=== PATIENT | male | born 1955 | race Caucasian/White ===

== ENCOUNTER 2018-05-04 15:16 | Emergency (ER) | payer OTHER ==
[~2018-05-04] VITALS: Ht 190.5 cm; Wt 160.1 kg
[~2018-05-04 15:16] MED LIST: AMOXICILLIN 50500 M1 PO; APEDRA; DEXILANT60 MG PO; GLUCOPHAGE1000 MG; HUMALOG100 UNIT/1 SUBQ; HYDROCODON-ACE1 EAC5 PO; IBUPROFEN 800800 M1 PO; LANTUS; LOVASTAT40; MECLIZINE HCL25 M1 PO; NEURONTIN600 MG; PERCOCET 10-321 EACH PO; PRINZIDE 20-121 EACH PO; TAMSULOSIN HCL0.4 M1 PO; ULTRAM 50MG TAB50 MG PO
[2018-05-04] MEDS ORDERED: METOPROLOL SUCC50 MG PO (15:33)
[2018-05-04] MEDS ORDERED: FLOMAX0.4 MG PO (15:33)
[2018-05-04] MEDS ORDERED: NEURONTIN600 MG PO (15:33)
[2018-05-04] MEDS ORDERED: ATORVASTATIN CA40 MG PO (15:34)
[2018-05-04] MEDS ORDERED: ZOLOFT25 MG PO (15:34)
[2018-05-04] MEDS ORDERED: NORVASC2.5 MG PO (15:34)
[2018-05-04] MEDS ORDERED: MOBIC15 MG PO (15:36)
[2018-05-04 16:21] LABS: ABSOLUTE BASOPHILS 0.1 thou/uL (0.0-0.2); ABSOLUTE EOSINOPHILS 0.2 thou/uL (0.0-0.7); ABSOLUTE LYMPHOCYTES 2.2 thou/uL (0.8-5.3); ABSOLUTE MONOCYTES 0.6 thou/uL (0.0-1.2); ABSOLUTE NEUTROPHILS 3.8 thou/uL (1.6-8.1); BASOPHILS 0.8 %; EOSINOPHILS 3.2 %; HEMATOCRIT 38.2 % (42.0-52.0); HEMOGLOBIN 12.5 gm/dL (14.0-18.0); LYMPHOCYTES 32.3 %; MCH 28.5 pg (26.0-34.0); MCHC 32.7 g/dL (28.0-37.0); MCV 87.1 fL (80.0-100.0); MONOCYTES 8.2 %; MPV 8.5 fl. (7.2-11.1); NUCLEATED RBCS 0 /100WBC; PLATELET COUNT* 227 thou/uL (150-400); POLYS 55.5 %; RBC 4.39 mil/uL (4.50-6.00); RDW-CV 14.2 % (10.5-14.5); WBC 6.9 thou/uL (4.0-11.0)
[2018-05-04 16:43] LABS: ANION GAP 5 mmol/L (7-16); BUN 25 mg/dL (7-18); CALCIUM 8.9 mg/dL (8.5-10.1); CHLORIDE 101 mmol/L (98-107); CO2 31 mmol/L (21-32); CREATININE 1.4 mg/dL (0.6-1.3); GLUCOSE 201 mg/dL (70-99); POTASSIUM 4.9 mmol/L (3.5-5.1); SODIUM 137 mmol/L (136-145); TROPONIN-I LEVEL <0.06 ng/mL (<0.06)
[2018-05-04 16:47] LABS: ALBUMIN 3.8 g/dL (3.4-5.0); ALKALINE PHOSPHATASE 75 U/L (46-116); SGOT 17 U/L (15-37); SGPT 28 U/L (30-65); TOTAL BILIRUBIN 0.8 mg/dL (<0.1-1.0); TOTAL PROTEIN 7.5 g/dL (6.4-8.2)
[2018-05-04 18:30] VITALS: BP 131/66
--- NOTE | 2018-05-05 11:50 | EKG ---
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1955 Requested By: Lorraine Pardo Order Number: [id number] MD: Kp Bagley Measurements Intervals [place] Rate: 84 P: -45 NE: 250 QRS: -11 QRSD: 100 T: 27 QT: 382 QTc: 452 Interpretive Statements Pediatric ECG interpretation Sinus or ectopic atrial bradycardia Prolonged NE interval Low voltage, precordial leads Compared to ECG 12/03/2015 08:39:17 First degree AV block now present Low QRS voltage now present Electronically Signed On 05-05-2018 11:49:53 [employer] by Kp Bagley [email or web address] <ELECTRONICALLY SIGNED> By: Kp Bagley MD, [facility] 05/05/18 1149 42 1643 Kp Bagley MD, [facility] /EPI
== END 2018-05-04 18:30 | disposition home or self-care (01) ==
LOC: M.ERS 15:16
PROVIDERS: Physician Assistant
DX: I95.1 Orthostatic hypotension (principal); E86.0 Dehydration; I10 Essential (primary) hypertension; E11.42 Type 2 diabetes mellitus with diabetic polyneuropathy; Z88.1 Allergy status to other antibiotic agents

== ENCOUNTER 2018-06-02 07:06 | Emergency (ER) | payer OTHER ==
[~2018-06-02] VITALS: Ht 190.5 cm; Wt 163.3 kg
[~2018-06-02 07:06] MED LIST changes: +ATORVASTATIN CA40 MG PO; +FLOMAX0.4 MG PO; +METOPROLOL SUCC50 MG PO; +MOBIC15 MG PO; +NEURONTIN600 MG PO; +NORVASC2.5 MG PO; +ZOLOFT25 MG PO
[2018-06-02 07:12] VITALS: BP 156/82
[2018-06-02] MEDS ORDERED: LANTUS100 UNIT/M SUBQ (07:17)
[2018-06-02] MEDS ORDERED: NOVOLOG100 UNIT/1 SUBQ (07:18)
== END 2018-06-02 07:49 | disposition home or self-care (01) ==
LOC: M.ERS 07:06
DX: T40.2X1A Poisoning by other opioids, accidental (unintentional), initial encounter (principal); I10 Essential (primary) hypertension; E11.42 Type 2 diabetes mellitus with diabetic polyneuropathy; Z79.4 Long term (current) use of insulin; Z88.1 Allergy status to other antibiotic agents; Y92.89 Other specified places as the place of occurrence of the external cause

== ENCOUNTER 2020-01-13 14:40 | Inpatient (IN) | payer MEDICARE ==
[~2020-01-13] VITALS: Ht 193 cm; Wt 166.0 kg
--- NOTE | ~2020-01-13 | CON ---
[address] [address] CONSULTATION Name: GET MARSHALL Room: [address] IN [facility]#: [id number] Admission: 01/13/20 Attend Phys: Tristan Ellington Discharge: Date of : 51 Report #: [id number] THIS REPORT FOR: //name// cc: Kimberly Manley Sarah Anne FNP ~ DATE OF SERVICE: 01/14/2020 ADMISSION DIAGNOSIS: Diabetic foot ulcer to the right great toe with worsening cellulitis. CHIEF COMPLAINT AND HISTORY OF PRESENT ILLNESS: The patient is a 64-year-old male with type 2 diabetes mellitus, peripheral neuropathy, obesity, and hypertension. He presented to the Emergency Room yesterday for increasing inflammation and pain to the right great toe. Several days ago, he first noticed a wound to the plantar aspect of the right hallux, which became increasingly red, hot, and swollen. He spoke with his PCP and was advised to go to the Emergency Room. He denies fevers, chills, nausea, malaise, chest pain, or shortness of breath. PAST MEDICAL HISTORY: DM, hypertension, peripheral neuropathy, morbid obesity. ALLERGIES: DECLOMYCIN. SOCIAL HISTORY: Denies alcohol or tobacco use. X-ray, negative for osteomyelitis to right hallux. LABORATORY DATA: WBC 9.9, RBC 4.74, hemoglobin 13.4, hematocrit 41.2, platelets 254. BUN 25, creatinine 1.5, glucose 203, albumin 4.0. PHYSICAL EXAMINATION: Temperature 98.3, pulse 85, respirations 18, blood pressure 148/85. There is an ulceration of the right plantar hallux that measures roughly 3.0 x 1.5 cm and is full thickness with a granular wound bed. There is no exposed bone, tendon, or joint. There is erythema to the right hallux extending to the dorsal and plantar aspect of the distal foot. There is no fluctuance or crepitation. The foot is warm with palpable dorsalis pedis and posterior tibial pulses. There is no pallor or cyanosis. He has onychomycosis in the right hallux, nail is severely dystrophic without leonela paronychia. Both lower extremities have +3 nonpitting edema with mild hemosiderosis. No calf pain or popliteal adenopathy bilaterally. IMPRESSION: Diabetic foot ulceration to right hallux with cellulitis, no clinical or radiographic evidence of osteomyelitis. PLAN: I took an aerobic swab culture and debrided the wound with scissors and forceps to remove some subcutaneous tissue from [place] [address] CONSULTATION Name: AUBREEERROLGET Kwon Room: [address]#: [id number] Admission: 01/13/20 Attend Phys: Tristan Ellington Discharge: Date of : 51 Report #: [id number] was cleansed and dressed with Xeroform foam and rolled gauze. I do not anticipate the need for surgical debridement or amputation. I am not going to order an MRI as I do not favor an abscess or osteomyelitis. The patient encouraged to elevate foot and minimize ambulation to the heel for short distances and transfers during his hospital stay. I will have a surgical shoe delivered at bedside. By: 1144 [id number] Suarez DPM /aida
[~2020-01-13 14:40] MED LIST changes: -ATORVASTATIN CA40 MG PO; -GLUCOPHAGE1000 MG; +GLUCOPHAGE1000 MG PO; +LANTUS100 UNIT/M SUBQ; +LIPITOR40 MG PO; +NOVOLOG100 UNIT/1 SUBQ
[2020-01-13 14:46] VITALS: BP 162/90
[2020-01-13 15:35] LABS: ABSOLUTE BASOPHILS 0.1 thou/uL (0.0-0.2); ABSOLUTE EOSINOPHILS 0.3 thou/uL (0.0-0.7); ABSOLUTE MONOCYTES 0.9 thou/uL (0.0-1.2); ABSOLUTE NEUTROPHILS 5.8 thou/uL (1.6-8.1); BASOPHILS 0.7 %; EOSINOPHILS 2.9 %; HEMATOCRIT 41.2 % (42.0-52.0); HEMOGLOBIN 13.4 gm/dL (14.0-18.0); LYMPHOCYTES 29.8 %; MCH 28.2 pg (26.0-34.0); MCHC 32.4 g/dL (28.0-37.0); MONOCYTES 8.7 %; MPV 7.7 fl. (7.2-11.1); NUCLEATED RBCS 0 /100WBC; PLATELET COUNT* 254 thou/uL (150-400); POLYS 57.9 %; RBC 4.74 mil/uL (4.50-6.00); RDW-CV 15.2 % (10.5-14.5); WBC 9.9 thou/uL (4.0-11.0)
[2020-01-13 15:50] LABS: CALCIUM 9.9 mg/dL (8.5-10.1); CREATININE 1.6 mg/dL (0.6-1.3); POTASSIUM 4.8 mmol/L (3.5-5.1); TOTAL BILIRUBIN 0.6 mg/dL (<0.1-1.0); TOTAL PROTEIN 8.4 g/dL (6.4-8.2)
--- NOTE | 2020-01-13 17:26 | EKG ---
[place] [address] ELECTROCARDIOGRAM REPORT Name: AUBREEGET NORTON Room: [place] [address] ADM IN [facility]#: [id number] Admission: 01/13/20 Attend Phys: Merrill Bañuelos Discharge: Date of : 51 Date of Service: 01/13/20 1533 Report #: [id number] THIS REPORT FOR: //name// [facility] ED Test Date: 2020-01-13 Test Time: 15:33:57 Pat Name: GET MARSHALL Department: Room: [facility] Gender: M Barkeep: JONES : 1955 Requested By: Brant Samuel Order Number: [id number] MD: Kp Bagley Measurements Intervals [place] Rate: 79 P: 30 RI: 211 QRS: -29 QRSD: 160 T: 3 QT: 406 QTc: 466 Interpretive Statements Sinus rhythm Right bundle branch block Baseline wander in lead(s) II,aVR Compared to ECG 05/04/2018 16:43:21 Right bundle-branch block now present First degree AV block no longer present Electronically Signed On 01-13-2020 17:26:36 [employer] by Kp Bagley [email or web address] <ELECTRONICALLY SIGNED> By: Kp Bagley MD, FACC 01/13/20 1726 1533 1533 Kp Bagley MD, FACC /EPI
[2020-01-13 20:43] LABS: CREATININE 1.5 mg/dL (0.6-1.3); POTASSIUM 4.7 mmol/L (3.5-5.1)
[2020-01-13 20:46] LABS: MAGNESIUM 1.2 mg/dL (1.8-2.4); PHOSPHORUS* 3.9 mg/dL (2.5-4.9)
[2020-01-13 21:40] VITALS: BP 142/70
[2020-01-13 23:00] VITALS: BP 148/85
[2020-01-13] MEDS ORDERED: ZESTRIL40 MG PO (23:47)
[2020-01-13] MEDS ORDERED: TEMAZEPAM30 MG PO (23:51)
[2020-01-13] MEDS ORDERED: DESYREL150 MG (23:53)
--- NOTE | 2020-01-14 06:28 | NUR ---
RECEIVED REPORT FROM ED RN. PT TRANSFERRED TO 228. PT A&OX4. VSS. PHYSICAL ASSESSMENT COMPLETED AND CHARTED. PT ON RA/2LNC AT HS. PT TRACING SR/PVC ON TELE. PT SUPPOSED TO BE UPSTANDBY DUE TO RECENT FALL BUT REFUSED BED ALARM ON & TO BE ASSISTED TO RESTROOM. PT COMPLAINED OF BACK PAIN-MED GIVEN PER MAY. PT WITH RIGHT FOOT CELLULITIS & SORE ON RIGHT GREAT TOE-CLEANED, PAT DRY & PHOTO TAKEN-WOUND CARE CONSULT. CALL LIGHT WITHIN REACH.
[2020-01-14 07:30] VITALS: BP 110/69
[2020-01-14 13:10] VITALS: BP 117/68
[2020-01-14 16:29] VITALS: BP 138/79
[2020-01-14 20:00] VITALS: BP 123/53
[2020-01-15] VITALS: BP 129/76; BP 141/94
--- NOTE | 2020-01-15 05:29 | NUR ---
ASSUMED CARE OF PT AFTER REPORT AT 1930. PT A&IX4. VSS. PHYSICAL ASSESSMENT COMPLETED AND CHARTED. PT ON RA. PT REQUESTED FOR CPAP HE HAS SLEEP APNEA-DR KHALIL MADE AWARE WITH NEW ORDER. PT COMPLAINED OF BACK PAIN-MED GIVEN PER MAY. CALL LIGHT WITHIN REACH.
[2020-01-15 07:30] VITALS: BP 137/81
[2020-01-15 11:55] VITALS: BP 137/81
[2020-01-16] MEDS ORDERED: CEFDINIR300 MG PO (14:40)
== END 2020-01-15 15:00 | disposition home or self-care (01) | DRG 623 ==
LOC: M.ERS 14:40 → M.2W 15:53 → M.TBA-ER 15:53 → M.2W 22:09
PROVIDERS: Family Medicine; ADMIT Internal Medicine; ATTEND Internal Medicine
PROC: 0JBQ0ZZ Excision of Right Foot Subcutaneous Tissue and Fascia, Open Approach (ICD-10-PCS; principal; 2020-01-14)
DX: E11.69 Type 2 diabetes mellitus with other specified complication (principal); M86.8X7 Other osteomyelitis, ankle and foot; L03.115 Cellulitis of right lower limb; R65.10 Systemic inflammatory response syndrome (SIRS) of non-infectious origin without acute organ dysfunction; E11.621 Type 2 diabetes mellitus with foot ulcer; E11.41 Type 2 diabetes mellitus with diabetic mononeuropathy; L97.519 Non-pressure chronic ulcer of other part of right foot with unspecified severity; E11.22 Type 2 diabetes mellitus with diabetic chronic kidney disease; G47.30 Sleep apnea, unspecified; I12.9 Hypertensive chronic kidney disease with stage 1 through stage 4 chronic kidney disease, or unspecified chronic kidney disease; N18.9 Chronic kidney disease, unspecified; Z20.828 Contact with and (suspected) exposure to other viral communicable diseases; Z88.1 Allergy status to other antibiotic agents; Z79.4 Long term (current) use of insulin; Z79.899 Other long term (current) drug therapy; Z85.47 Personal history of malignant neoplasm of testis; Z87.891 Personal history of nicotine dependence

== ENCOUNTER 2020-02-13 14:01 | Inpatient (IN) | payer MEDICARE ==
[~2020-02-13] VITALS: Ht 190.5 cm; Wt 171.9 kg
[~2020-02-13 14:01] MED LIST changes: +CEFDINIR300 MG PO; +DESYREL150 MG; +TEMAZEPAM30 MG PO; +ZESTRIL40 MG PO
[2020-02-13 14:12] VITALS: BP 142/65
[2020-02-13 15:27] LABS: ABSOLUTE BASOPHILS 0.1 thou/uL (0.0-0.2); ABSOLUTE EOSINOPHILS 0.3 thou/uL (0.0-0.7); ABSOLUTE LYMPHOCYTES 2.2 thou/uL (0.8-5.3); ABSOLUTE NEUTROPHILS 7.6 thou/uL (1.6-8.1); BASOPHILS 0.6 %; EOSINOPHILS 2.4 %; HEMATOCRIT 40.5 % (42.0-52.0); HEMOGLOBIN 13.2 gm/dL (14.0-18.0); LYMPHOCYTES 19.7 %; MCHC 32.5 g/dL (28.0-37.0); MCV 86.2 fL (80.0-100.0); MONOCYTES 8.8 %; MPV 8.1 fl. (7.2-11.1); NUCLEATED RBCS 0 /100WBC; PLATELET COUNT* 274 thou/uL (150-400); POLYS 68.5 %; RDW-CV 15.1 % (10.5-14.5); WBC 11.2 thou/uL (4.0-11.0)
[2020-02-13 15:36] LABS: APTT 24.2 Seconds (25.0-31.3); PROTIME 10.3 Seconds (9.20-11.50)
[2020-02-13 15:48] LABS: CALCIUM 9.6 mg/dL (8.5-10.1); CREATININE 1.8 mg/dL (0.6-1.3); POTASSIUM 4.6 mmol/L (3.5-5.1)
[2020-02-13 15:52] LABS: ALBUMIN 4.1 g/dL (3.4-5.0); TOTAL BILIRUBIN 0.4 mg/dL (<0.1-1.0); TOTAL PROTEIN 8.6 g/dL (6.4-8.2)
[2020-02-13 23:33] VITALS: BP 120/61
[2020-02-14] VITALS: BP 119/43
[2020-02-14 05:18] LABS: MCHC 32.4 g/dL (28.0-37.0); MPV 8.3 fl. (7.2-11.1)
[2020-02-14 05:21] LABS: HEMATOCRIT 38.4 % (42.0-52.0); HEMOGLOBIN 12.4 gm/dL (14.0-18.0); MCV 86.4 fL (80.0-100.0); RBC 4.44 mil/uL (4.50-6.00); RDW-CV 14.8 % (10.5-14.5); WBC 9.9 thou/uL (4.0-11.0)
[2020-02-14 05:40] LABS: CALCIUM 9.3 mg/dL (8.5-10.1); CREATININE 1.8 mg/dL (0.6-1.3); POTASSIUM 4.7 mmol/L (3.5-5.1)
[2020-02-14 08:00] VITALS: BP 131/72
[2020-02-14 12:06] LABS: URINE BILIRUBIN NEGATIVE (Negative); URINE BLOOD NEGATIVE (Negative); URINE CLARITY CLEAR; URINE COLOR YELLOW; URINE GLUCOSE-RANDOM 2+ (Negative); URINE KETONES NEGATIVE (Negative); URINE LEUKOCYTES-REFLEX NEGATIVE (Negative); URINE NITRITE-REFLEX NEGATIVE (Negative); URINE PROTEIN NEGATIVE (Negative); URINE SPECIFIC GRAVITY <= 1.005 (1.005-1.030); URINE UROBILINOGEN 0.2 E.U./dl (0.2-1.0)
[2020-02-14 16:00] VITALS: BP 125/69
[2020-02-14 20:10] VITALS: BP 110/61
[2020-02-15 04:00] VITALS: BP 100/51
[2020-02-15 08:40] VITALS: BP 147/80
[2020-02-15 10:35] LABS: CALCIUM 9.3 mg/dL (8.5-10.1); CREATININE 1.7 mg/dL (0.6-1.3); POTASSIUM 5.6 mmol/L (3.5-5.1)
[2020-02-15 12:47] VITALS: BP 138/70
--- NOTE | 2020-02-15 13:36 | CON ---
[address] [address] CONSULTATION Name: GET MARSHALL Doyle Room: [address] IN .[place].#: [id number] Admission: 02/13/20 Attend Phys: Raymond Casiano, Discharge: Date of : 51 Report #: [id number] THIS REPORT FOR: cc: Walter Alberts MD, Bruce D. MD ~ Joni Suarez DPM DATE OF SERVICE: 02/14/2020 ADMISSION DIAGNOSIS: Diabetic foot ulceration with cellulitis . HISTORY OF PRESENT ILLNESS AND CHIEF COMPLAINT: This is a 64-year-old male admitted through the Emergency Department for worsening cellulitis to the right great toe. He has an ulceration to the dorsal, medial, plantar and lateral aspects of the hallux with concomitant type 2 diabetes mellitus with peripheral neuropathy. I initially saw him during his last hospitalization roughly 1 month ago and he was discharged on parenteral vancomycin due to polymicrobial growth. He failed to follow up with me in my office as an outpatient due to his out of pocket cost. He has been applying the antibiotic ointment and wearing a sock over the area. He denies fever, chills, nausea, malaise or appetite change. He relates pain to the hallux with palpation. He is currently on parenteral ceftriaxone. Cultures negative x2. X-ray negative for osteolysis or subcutaneous emphysema. Prior arterial Doppler shows multiphasic waveforms to the right lower extremity with no evidence of stenosis. Wound culture from 01/13 grew Enterococcus faecalis, vagal coccus and Myroides species. LABORATORY DATA: WBC 9.9, hemoglobin 12.4, hematocrit 38.4 and platelets 254. BUN 23, creatinine 1.8 and glucose 129. PHYSICAL EXAMINATION: Temperature 97.6, pulse 78, respirations 18 and blood pressure 125/69. There is a full-thickness ulceration to the dorsal lateral aspect of the right hallux overlying the PIP joint. The wound is transverse along the skin crease overlying the joint and measures roughly 2.5 x 0.5 x 0.3 cm. There is localized inflammation with a yellow fibrotic wound bed with no red granulation. I cannot palpate or visualize the bone, and I cannot probe down to the underlying joint. I am unable to express any drainage or purulence. There is a small wound to the plantar medial aspect of the hallux with surrounding callus with no deep penetration. This lesion is roughly 0.8 cm diameter. The right hallux has limited range of motion due to osteoarthritis with roughly 30 degrees dorsiflexion. He has palpable dorsalis pedis pulses bilaterally, +3 edema to both legs. No pallor/cyanosis or signs of acute vascular embarrassment. Toenails are dystrophic consistent with onychomycosis without paronychia. IMPRESSION: Diabetic foot ulceration to right hallux [place] [address] CONSULTATION Name: GET MARSHALL Doyle Room: [address] IN [facility]#: [id number] Admission: 02/13/20 Attend Phys: Raymond Casiano, Discharge: Date of : 51 Report #: [id number] PLAN: I performed an aerobic swab culture and performed an excisional wound debridement with a sterile curette to remove subcutaneous tissue slough and slough from the wound bed. Scant bleeding was achieved and the wound was cleansed and dressed with saline moistened gauze and roll gauze. The patient had an MRI this afternoon, but the report is not available. I will keep him n.p.o. past midnight in case there is evidence of underlying osteomyelitis. We will have the bandage changed daily with Aquacel Ag and roll gauze. The patient to ambulate short distances only in a surgical shoe. <ELECTRONICALLY SIGNED> By: Joni Suarez DPM 02/15/20 1336 0659 [id number] Suarez DPM /aida
[2020-02-15 20:10] VITALS: BP 115/58
[2020-02-16 00:22] VITALS: BP 122/48
[2020-02-16 05:18] VITALS: BP 127/75
[2020-02-16 08:45] VITALS: BP 145/68
[2020-02-16 16:30] VITALS: BP 112/65
[2020-02-16 20:00] VITALS: BP 110/59
[2020-02-17 08:00] VITALS: BP 129/82
[2020-02-17 08:03] LABS: ABSOLUTE LYMPHOCYTES 2.3 thou/uL (0.8-5.3); MPV 7.7 fl. (7.2-11.1)
[2020-02-17 08:05] LABS: ABSOLUTE EOSINOPHILS 0.3 thou/uL (0.0-0.7); ABSOLUTE MONOCYTES 0.8 thou/uL (0.0-1.2); ABSOLUTE NEUTROPHILS 4.5 thou/uL (1.6-8.1); BASOPHILS 0.6 %; EOSINOPHILS 4.1 %; HEMATOCRIT 39.4 % (42.0-52.0); HEMOGLOBIN 12.8 gm/dL (14.0-18.0); LYMPHOCYTES 28.9 %; MCH 28.1 pg (26.0-34.0); MCHC 32.5 g/dL (28.0-37.0); MCV 86.4 fL (80.0-100.0); MONOCYTES 9.8 %; NUCLEATED RBCS 0 /100WBC; PLATELET COUNT* 261 thou/uL (150-400); POLYS 56.6 %; RBC 4.55 mil/uL (4.50-6.00); RDW-CV 14.9 % (10.5-14.5)
[2020-02-17 08:14] LABS: CALCIUM 8.8 mg/dL (8.5-10.1); CREATININE 1.7 mg/dL (0.6-1.3); POTASSIUM 4.9 mmol/L (3.5-5.1)
--- NOTE | 2020-02-17 09:45 | CON ---
[address] [address] CONSULTATION Name: GET MARSHALL Room: [address] IN .R.#: [id number] Admission: 02/13/20 Attend Phys: Raymond Casiano, Discharge: Date of : 51 Report #: [id number] THIS REPORT FOR: cc: Walter Alberts MD, Bruce D. MD ~ Briseida Oliver MD DATE OF SERVICE: 02/16/2020 NEPHROLOGY CONSULTATION CONSULTING PHYSICIAN: Dr. Casiano. REASON FOR NEPHROLOGY CONSULTATION: Acute kidney injury on chronic kidney disease, stage 3A. REASON FOR ADMISSION: Right big toe pain. HISTORY OF PRESENT ILLNESS: This is a 64-year-old male who has history of uncontrolled diabetes mellitus type 2, first diagnosed in 2009, he does not know if he has retinopathy or not, does not follow with Ophthalmology, hypertension, came in with cellulitis of his right big toe. MRI did not show osteomyelitis. About 3-4 weeks ago, he was here in the hospital, treated with vancomycin for this big toe infection and he was discharged on oral antibiotic. His toe was still not looking good and he said that he was given another antibiotic by his primary care on 02/07/2020, but he does not know the name of the antibiotic. He came in this time because he was having sharp pain in that toe. He underwent excisional debridement on 02/13/2020 itself and his antibiotic was initially vancomycin over here IV and IV has been changed to ceftriaxone yesterday because of his elevated creatinine. His blood pressures have been running towards the lower side. He has been getting lisinopril over here. He does have a past history of using meloxicam, but quit using 2 years ago, but currently is not using any NSAIDs. I held his lisinopril because of low blood pressures and his potassium running marginally high. He states that he sometimes has a weak stream of urine. He has been eating and drinking well. His creatinine was 1.8 here on arrival and has gone up to 2.0 today. ALLERGIES: DEMECLOCYCLINE. REVIEW OF SYSTEMS: Review of systems as mentioned in history of present illness, otherwise 10-point review of systems are negative. PAST MEDICAL HISTORY: Includes history of chronic kidney disease, stage 3A. Baseline creatinine 1.5-1.6, uncontrolled diabetes mellitus type 2, hypertension, cellulitis of his right foot big toe, peripheral neuropathy, [place] [address] CONSULTATION Name: GET MARSHALL Room: [address]#: [id number] Admission: 02/13/20 Attend Phys: Raymond Casiano, Discharge: Date of : 51 Report #: [id number] apnea, testicular cancer in 1989. PAST SURGICAL HISTORY: None reported. FAMILY HISTORY: No family history is known because the patient is adopted. SOCIAL HISTORY: He is on social security. Does not smoke or drink alcohol or use illicit drugs. HOME MEDICATIONS: Include oxycodone, acetaminophen, he was on an antibiotics recently, we do not know the name of. He is on metformin 1000 mg t.i.d., Lantus, temazepam, lisinopril 40 mg a day, atorvastatin, NovoLog, sertraline, metoprolol, gabapentin 600 mg t.i.d., tamsulosin. PHYSICAL EXAMINATION: VITAL SIGNS: Blood pressure is 127/75, temperature 37.1, pulse rate is 70, respiratory rate is 18, pulse ox 96% and he is on room air. GENERAL: He is awake, alert, oriented x 3. He is obese. HEAD AND EYES: Atraumatic and normocephalic. Conjunctivae normal. EARS, NOSE, AND THROAT: Normal ears and nose. Mucous membranes are moist. NECK: No JVD. CHEST: Bilaterally clear to auscultation anteriorly. No crackles or wheezing. CARDIOVASCULAR: S1, S2 normal. No murmurs. ABDOMEN: Obese, soft, nondistended, nontender. EXTREMITIES: Lower extremities, no edema. Right big toe was in a dressing and has now removed the dressing. NEUROLOGICAL FUNCTION: Gross neurological function internal. PSYCHIATRIC: Mood and affect seem to be normal. LABORATORY DATA: His WBC is 9.9, hemoglobin is 12.4, his platelet count is 254. Sodium 137, potassium is 5.0 which is better from 5.6 yesterday, CO2 is 28, BUN is 32, creatinine is 2.0, which is up from 1.7 yesterday. Vancomycin level was 5.0 and other labs are reviewed. IMAGING: Lower extremity MRI and foot x-ray was reviewed. ASSESSMENT: 1. Acute kidney injury on chronic kidney disease, stage 3A. Baseline creatinine is 1.5-1.6 and creatinine 1.8 on admission, and is 2.0 now. Acute kidney injury could have been because of marginal hypotension along with lisinopril use. He has also been on multiple antibiotics recently. AIN is always a possibility. UA was unremarkable, although only with 2+ glucose. Renal ultrasound will be checked. Bladder scan will be checked as well. He is not taking [place] [address] CONSULTATION Name: GET MARSHALL Room: [address]#: [id number] Admission: 02/13/20 Attend Phys: Raymond Casiano, Discharge: Date of : 51 Report #: [id number] 2. Diabetes type 2, uncontrolled. Defer to primary team for management, he does need to follow with Ophthalmology as outpatient to assess if he has retinopathy or not. 3. Diabetic neuropathy as per primary team. 4. Hypertension. Blood pressure is running marginally low. lisinopril has been held. 5. Mild hyperkalemia because of lisinopril and acute kidney injury. It is getting better. 6. Right big toe infection. The patient is being treated for cellulitis. MRI has ruled out osteomyelitis. 7. Obesity. PLAN: 1. He is on ceftriaxone currently for right big toe infection. 2. I have stopped his lisinopril. Continue to monitor his blood pressure. 3. Low potassium renal diet and his potassium has improved. 4. We will check a bladder scan and renal ultrasound. 5. Ultimately, because of his chronic kidney disease, he will need to follow up with Nephrology as outpatient. I gave him my information as well. Thank you for this consultation. We will continue to follow closely with you. Agree with keeping metformin on hold as well. Discussed with the patient in detail and discussed with nurse as well. <ELECTRONICALLY SIGNED> By: Briseida Oliver MD 02/17/20 0945 0907 MD max Stoddard
[2020-02-17] MEDS ORDERED: AUGMENTIN 875-1 EACH PO (10:03)
[2020-02-17 10:16] VITALS: BP 129/82
[2020-02-17 10:17] VITALS: BP 129/82
== END 2020-02-17 10:40 | disposition home health service (06) | DRG 622 ==
LOC: M.ERS 14:01 → M.2W 15:12 → M.TBA-ER 15:12 → M.2W 23:51
PROVIDERS: Family Medicine; Internal Medicine; ADMIT Family Medicine; ATTEND Family Medicine
PROC: 0JBQ0ZZ Excision of Right Foot Subcutaneous Tissue and Fascia, Open Approach (ICD-10-PCS; principal; 2020-02-14)
PROC: 5A09357 Assistance with Respiratory Ventilation, Less than 24 Consecutive Hours, Continuous Positive Airway Pressure (ICD-10-PCS; 2020-02-15)
PROC: 5A09357 Assistance with Respiratory Ventilation, Less than 24 Consecutive Hours, Continuous Positive Airway Pressure (ICD-10-PCS; 2020-02-16)
PROC: 5A09357 Assistance with Respiratory Ventilation, Less than 24 Consecutive Hours, Continuous Positive Airway Pressure (ICD-10-PCS; 2020-02-17)
DX: E11.621 Type 2 diabetes mellitus with foot ulcer (principal); R65.11 Systemic inflammatory response syndrome (SIRS) of non-infectious origin with acute organ dysfunction; Z68.42 Body mass index [BMI] 45.0-49.9, adult; L03.031 Cellulitis of right toe; N17.0 Acute kidney failure with tubular necrosis; L97.519 Non-pressure chronic ulcer of other part of right foot with unspecified severity; E11.22 Type 2 diabetes mellitus with diabetic chronic kidney disease; G47.33 Obstructive sleep apnea (adult) (pediatric); E66.01 Morbid (severe) obesity due to excess calories; E87.5 Hyperkalemia; E11.42 Type 2 diabetes mellitus with diabetic polyneuropathy; N28.1 Cyst of kidney, acquired; N18.30 Chronic kidney disease, stage 3 unspecified; I12.9 Hypertensive chronic kidney disease with stage 1 through stage 4 chronic kidney disease, or unspecified chronic kidney disease; Z20.828 Contact with and (suspected) exposure to other viral communicable diseases; Z85.47 Personal history of malignant neoplasm of testis; Z88.8 Allergy status to other drugs, medicaments and biological substances; Z79.4 Long term (current) use of insulin; Z79.899 Other long term (current) drug therapy

== ENCOUNTER 2020-11-18 01:03 | Observation (INO) | payer MEDICARE ==
[~2020-11-18] VITALS: Ht 193 cm; Wt 166.9 kg
[~2020-11-18 01:03] MED LIST changes: +AUGMENTIN 875-1 EACH PO
[2020-11-18] MEDS ORDERED: BACTRIM DS TAB1 EACH PO (01:42)
[2020-11-18] MEDS ORDERED: PERCOCET 5-3251 EACH PO (01:43)
[2020-11-18] MEDS ORDERED: ZESTRIL40 MG PO (01:44)
[2020-11-18] MEDS ORDERED: JARDIANCE25 MG PO (01:44)
[2020-11-18 02:44] LABS: ABSOLUTE BASOPHILS 0.1 thou/uL (0.0-0.2); ABSOLUTE EOSINOPHILS 0.3 thou/uL (0.0-0.7); ABSOLUTE LYMPHOCYTES 2.6 thou/uL (0.8-5.3); ABSOLUTE MONOCYTES 1.1 thou/uL (0.0-1.2); ABSOLUTE NEUTROPHILS 6.4 thou/uL (1.6-8.1); BASOPHILS 1.3 %; EOSINOPHILS 2.7 %; HEMATOCRIT 38.8 % (42.0-52.0); HEMOGLOBIN 13.1 gm/dL (14.0-18.0); LYMPHOCYTES 24.6 %; MCH 29.1 pg (26.0-34.0); MCHC 33.8 g/dL (28.0-37.0); MCV 86.2 fL (80.0-100.0); MONOCYTES 10.3 %; MPV 7.7 fl. (7.2-11.1); NUCLEATED RBCS 0 /100WBC; PLATELET COUNT* 373 thou/uL (150-400); POLYS 61.1 %; RBC 4.51 mil/uL (4.50-6.00); RDW-CV 14.7 % (10.5-14.5); WBC 10.5 thou/uL (4.0-11.0)
[2020-11-18 02:54] LABS: CALCIUM 8.9 mg/dL (8.5-10.1); CREATININE 1.7 mg/dL (0.6-1.3); POTASSIUM 4.6 mmol/L (3.5-5.1)
[2020-11-18 06:11] VITALS: BP 122/78
--- NOTE | 2020-11-18 08:37 | NUR ---
DR. GOLDMAN/ROD PAGED VIA PAGING SERVICE REGARDING PT REQUEST FOR PAIN MEDICATION.
[2020-11-18 10:11] VITALS: BP 127/84
[2020-11-18 14:45] VITALS: BP 126/84
--- NOTE | 2020-11-18 15:00 | NUR ---
THIS RN WENT INTO PT'S ROOM TO ADMINISTER PRESCRIBED AND REQUESTED PAIN MEDICATIONS. RN FOUND PT TO NOT BE IN ROOM OR BATHROOM. RN WAS TOLD THAT PT HAS AMBULATED TO EMERGENCY DEPARTMENT WAITING AREA. THIS RN THEN WENT TO CHECK ON PT IN WAITING AREA AND FOUND PT TO BE USING VENDING MACHINE TO OBTAIN PAYDAY CANDY BAR, MINI DONUTS, AND DIET COKE. RN INFORMED PT THAT HIS SUGARS HAVE REMAINED HIGH DURING HIS STAY AND THAT HIS FOOD CHOICES ARE NOT ON HIS APPROVED AND ORDERED DIET. PT VERBALIZED UNDERSTANDING. PT REEDUCATED ON DIETARY CHOICES THAT ARE A PART OF DIABETIC DIET AND OF RISKS TO HIMSELF IF HE CONTINUES TO ALLOW SUGARS TO BE ELEVATED AND TO NOT ADHERE TO PRESCRIBED DIET. PT VERBALIZED ALL UNDERSTANDING BUT CONTINUED TO EAT ABOVE LISTED ITEMS. THIS RN PASSED ALONG IN REPORT TO UNIT RN INCIDENT TO FURTHER EDUCATION ON SUBJECT.
[2020-11-18 15:33] VITALS: BP 126/84
[2020-11-18 20:30] VITALS: BP 137/67
[2020-11-19] VITALS: BP 131/70
--- NOTE | 2020-11-19 04:36 | NUR ---
PT UPSET ABOUT THE CARE HE RECEIVED HERE, DID NOT WANT CPAP, FORGOT HIS AT HOME AND DID NOT HAVE ANY WAY OF GETTING IT. HE RECEIVED FLUIDS AND ABX ORDERED, MORPHINE FOR PAIN. DRESSINGS CHANGED ON THURSDAY AND FEET ELEVATED. HE IS ALERT AND ORIENTED BUT WAS VERY ANXIOUS AND FRUSTRATED THEN ENDED UP APOLOGIZING ONCE HE REALIZED HE FORGOT HIS CPAP AND THE STAFF WAS NOT TO BLAME FOR THAT. HE RESTED WELL AFTER TRAZADONE GIVEN. WILL CONTINUE TO MONITOR.
--- NOTE | 2020-11-19 05:15 | NUR ---
PT STATES HE THINKS HE HAD A HEART ATTACK OVERNIGHT BECAUSE HE DID NOT HAVE HIS CPAP FROM HOME. HE DID NOT WANT THE CPAP PROVIDED BY [facility]. HE WAS PUT ON 2L-02 OVERNIGHT INSTEAD. HE SAID HIS CHEST HURT BUT WAS LAYING FLAT AND WOUND NOT ELEVATE HIS HEAD BECAUSE HE DID NOT WANT TO. HE WANTS TO GO HOME THIS MORNING AFTER THE DR SEES HIM BECAUSE HE WANTS TO SLEEP AND WANTS HIS CPAP. EKG SHOWED SINUS RHYTHM THIS MORNING.
--- NOTE | 2020-11-19 05:23 | NUR ---
EKG DONE AT 0500 PT THOUGHT HE HAD A HEART ATTACK BECAUSE HE DOES NOT HAVE HIS CPAP MACHINE EKG WAS NORMAL
[2020-11-19 08:00] VITALS: BP 162/75
[2020-11-19 08:57] LABS: ABSOLUTE BASOPHILS 0.1 thou/uL (0.0-0.2); ABSOLUTE EOSINOPHILS 0.3 thou/uL (0.0-0.7); ABSOLUTE LYMPHOCYTES 1.4 thou/uL (0.8-5.3); ABSOLUTE MONOCYTES 0.8 thou/uL (0.0-1.2); ABSOLUTE NEUTROPHILS 5.9 thou/uL (1.6-8.1); BASOPHILS 1.1 %; EOSINOPHILS 3.6 %; HEMATOCRIT 39.5 % (42.0-52.0); HEMOGLOBIN 12.6 gm/dL (14.0-18.0); LYMPHOCYTES 16.5 %; MCH 27.3 pg (26.0-34.0); MCHC 31.9 g/dL (28.0-37.0); MCV 85.6 fL (80.0-100.0); MONOCYTES 9.5 %; MPV 7.4 fl. (7.2-11.1); NUCLEATED RBCS 0 /100WBC; PLATELET COUNT* 331 thou/uL (150-400); POLYS 69.3 %; RBC 4.61 mil/uL (4.50-6.00); RDW-CV 14.5 % (10.5-14.5); WBC 8.5 thou/uL (4.0-11.0)
[2020-11-19 09:15] LABS: CALCIUM 8.9 mg/dL (8.5-10.1); CREATININE 1.4 mg/dL (0.6-1.3); POTASSIUM 4.5 mmol/L (3.5-5.1); TOTAL BILIRUBIN 0.4 mg/dL (<0.1-1.0); TOTAL PROTEIN 7.4 g/dL (6.4-8.2)
--- NOTE | 2020-11-19 09:32 | NUR ---
CM COMPELTED ASSESSMENT WITH PT. PT PRESENTED DISGRUNTLED AND AGITATED D/T NOT BEING ABLE TO "GO HOME AND GET MY CPAP" PT COMPLAINS THE CPAP PROVIDED BY HOSPITAL IS BIG. PT HAS THREATENED TO LEAVE AMA. PT ALSO COMPLAINED ABOUT BREAKFAST HE IS "ALLERGIC TO EGGS AND DONT LIKE COFFEE OR OATMEAL." PT TRY TO ORDER DIFFERENT BREAKFAST THAT WAS DENIED D/T DIET RESTRICTION IS WHAT CM HAS GATHER FROM PT'S COMPLAINT. PT LIVES HOME ALONE. TEXT NEIGHBOR WATCHING HIS PT TO SEE IF SHE CAN BRING HIS CPAP TO [facility]. PT HAS NO OTHER DME. PT IS ACTIVE AND INDEPENDENT WITH CARES. 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 CM TO CONT TO FOLLOW.
[2020-11-19 10:12] LABS: ESR (SEDRATE) 53 mm/hr (0-20)
--- NOTE | 2020-11-19 10:16 | EKG ---
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1955 Requested By: Klaudia Rankin Order Number: [id number] David MD: Kp Bagley Measurements Intervals [place] Rate: 82 P: 22 [place]: 218 QRS: -5 QRSD: 104 T: 19 QT: 377 QTc: 441 Interpretive Statements Sinus rhythm Borderline prolonged [place] interval Inferior infarct, old Compared to ECG 01/13/2020 15:33:57 Right bundle-branch block no longer present Electronically Signed On 11-19-2020 10:16:44 CDT by Kp Bagley [email or web address] <ELECTRONICALLY SIGNED> By: Kp Bagley MD, FAC 11/19/20 1016 0502 0502 Kp Bagley MD, [facility] /EPI
[2020-11-19] MEDS ORDERED: KEFLEX250 MG PO (11:50)
--- NOTE | 2020-11-19 11:58 | NUR ---
WOUND NURSE: PATIENT SEEN TO ADDRESS BILATERAL GREAT TOE WOUNDS. RIGHT GREAT TOE MEASURES 0.9 X 4.5 X 1.5 CM. WOUND WITH RED, NONGRANULATING TISSUE IN THE WOUND BED, NO EXPOSED BONE IDENTIFIED, SMALL AMOUNT OF SEROUSANGUINOUS DRAIANGE. MINIMAL PERIWOUND REDNESS, NO WARMTH OR INDURATION. PALPABLE DP PULSES BILAT. CAP REFILL <3 SECONDS BILAT. PATIENT REPORTS HE TRAUMATIZED HIS RIGHT TOE BY INAPPROPRIATELY WRAPPING IT WITH DRESSING CHANGES. LEFT GREAT TO PLANTAR SURFACE MEASURES 1.7 X 1.7 X 0.5 CM. CONTAINS PINK NONGRANULATING TISSUE IN THE WOUND BED. DOES NOT PROBE TO BONE. MODERATE AMOUNT OF SEROUSANGUINOUS DRAIANGE NOTED. NO PERIWOUND REDNESS, WARMTH, OR INDURATION NOTED. BOTH WOUNDS CLEANSED WITH WOUND CLEANSER AND GAUZE, APPLIED AQUACEL AG, WRAPPED WITH 2 INCH CONFORMING GAUZE. PATIENT TO FOLLOW UP WITH HIS WOUND CARE DOCTOR AT [facility] LATER THIS WEEK. PATIENT INSTRUCTED ON S/S OF INFECTION, NUTRITIONAL NEEDS, IMPORTANCE OF OFFLOADING WOUNDS, TIMELY FOLLOW UP WITH HIS WOUND CARE DOCTOR. PATIENT STATES HE UNDERSTANDS.
[2020-11-19 16:32] VITALS: BP 163/75
[2020-11-19 17:28] VITALS: BP 163/75
--- NOTE | 2020-11-19 17:29 | NUR ---
PATIENT DISCHARGED AT THIS TIME VIA WHEELCHAIR ACCOMPANIED BY THIS RN AND PATIENT'S FRIEND TO PRIVATE VEHICLE. IV DC'D, COTTON AND BANDAID APPLIED TO SITE. PATIENT TOLERATED WITHOUT DIFFICULTIES. DISCHARGE INSTRUCTIONS REVIEWED, PATIENT ACKNOWLEDGED UNDERSTANDING. ALL QUESTIONS AND CONCERNS ADDRESSED.
[2020-11-19 17:55] VITALS: BP 163/75
--- NOTE | 2020-11-19 17:57 | NUR ---
PATIENT DISCHARGED AT THIS TIME VIA WHEELCHAIR, ACCOMPANIED BY STAFF TO PRIVATE VEHICLE. IV DC'D, COTTON AND BANDAID PLACED TO SITE. DISCHARGE INSTRUCTIONS REVIEWED, PATIENT ACKNOWLEDGED UNDERSTANDING. NO QUESTIONS OR CONCERNS VOICED. PERSONAL BELONGINGS SENT HOME WITH PATIENT
[2020-11-20 02:06] LABS: GLYCOHEMOGLOBIN (HGB A1C) 11.3 % (4.8-5.6)
== END 2020-11-19 17:46 | disposition home or self-care (01) ==
LOC: M.ERS 01:03 → M.TBA-ER 02:10 → M.2W 02:10
PROVIDERS: Emergency Medicine; ADMIT Internal Medicine; ATTEND Internal Medicine
DX: E11.621 Type 2 diabetes mellitus with foot ulcer (principal); L97.518 Non-pressure chronic ulcer of other part of right foot with other specified severity; Z20.822 Contact with and (suspected) exposure to COVID-19; E11.22 Type 2 diabetes mellitus with diabetic chronic kidney disease; N18.30 Chronic kidney disease, stage 3 unspecified; E11.42 Type 2 diabetes mellitus with diabetic polyneuropathy; G47.30 Sleep apnea, unspecified; Z85.828 Personal history of other malignant neoplasm of skin; Z79.4 Long term (current) use of insulin; Z79.899 Other long term (current) drug therapy

== ENCOUNTER 2020-12-21 15:00 | Inpatient (IN) | payer MEDICARE ==
[~2020-12-21] VITALS: Ht 193 cm; Wt 164.7 kg
[~2020-12-21 15:00] MED LIST changes: +BACTRIM DS TAB1 EACH PO; +JARDIANCE25 MG PO; +KEFLEX250 MG PO; +PERCOCET 5-3251 EACH PO
[2020-12-21 15:14] VITALS: BP 126/61
[2020-12-21 16:46] LABS: HEMATOCRIT 36.2 % (42.0-52.0); HEMOGLOBIN 11.8 gm/dL (14.0-18.0); MCH 27.8 pg (26.0-34.0); MCHC 32.5 g/dL (28.0-37.0); MCV 85.8 fL (80.0-100.0); MPV 7.5 fl. (7.2-11.1); NUCLEATED RBCS 0 /100WBC; PLATELET COUNT* 299 thou/uL (150-400); RBC 4.22 mil/uL (4.50-6.00); RDW-CV 15.1 % (10.5-14.5); WBC 9.9 thou/uL (4.0-11.0)
[2020-12-21 16:53] LABS: CALCIUM 9.1 mg/dL (8.5-10.1); CREATININE 2.2 mg/dL (0.6-1.3); POTASSIUM 5.1 mmol/L (3.5-5.1)
[2020-12-21 17:00] LABS: ABSOLUTE EOSINOPHILS 0.3 thou/uL (0.0-0.7); ABSOLUTE LYMPHOCYTES 0.9 thou/uL (0.8-5.3); ABSOLUTE MONOCYTES 0.2 thou/uL (0.0-1.2); ABSOLUTE NEUTROPHILS 8.5 thou/uL (1.6-8.1); METAMYELOCYTES 3 %
[2020-12-21 17:01] LABS: PLATELET ESTIMATE ADEQUATE
[2020-12-21 17:03] LABS: TOTAL BILIRUBIN 0.4 mg/dL (<0.1-1.0); TOTAL PROTEIN 7.7 g/dL (6.4-8.2)
--- NOTE | 2020-12-21 17:27 | NUR ---
PT TOLD BY DR. BOSE THAT HE WILL BE ADMITTED. PT ASKED TO GET IN A GOWN AND HE REFUSED.
--- NOTE | 2020-12-21 18:06 | NUR ---
PT GIVEN DINNER.
[2020-12-21 21:50] VITALS: BP 154/71
--- NOTE | 2020-12-22 02:09 | NUR ---
PT UNCOOPERATIVE DURING ASSESSMENT. DATABASES COMPLETED FAR POSSIBLE. PT REFUSED TO SIGN CALL DON'T FALL AGREEMENT STATING HE WOULD NOT CALL OUT AND WOULD GO TO THE BATHROOM WHEN HE NEEDED TO. PT SCREAMING AT STAFF THAT HE WANTED IV FLUIDS NOW. DOCTOR PAGED FOR ORDERS FOR MEDS AND FLUIDS, WHILE AWAITING RESPONSE PATIENT LEFT AMA AT 0006. MEDICAL OFFICE SPECIALIST AND PHYSICIAN NOTIFIED.
== END 2020-12-22 00:06 | disposition left against medical advice (07) | DRG 603 ==
LOC: M.ERS 15:00 → M.TBA-ER 17:21 → M.3W 22:16
PROVIDERS: Emergency Medicine Emergency Medical Services; ADMIT Internal Medicine; ATTEND Internal Medicine
PROC: 5A09357 Assistance with Respiratory Ventilation, Less than 24 Consecutive Hours, Continuous Positive Airway Pressure (ICD-10-PCS; principal; 2020-12-21)
DX: L03.116 Cellulitis of left lower limb (principal); E11.9 Type 2 diabetes mellitus without complications; Z53.29 Procedure and treatment not carried out because of patient's decision for other reasons; Z20.822 Contact with and (suspected) exposure to COVID-19; Z90.49 Acquired absence of other specified parts of digestive tract; Z85.47 Personal history of malignant neoplasm of testis; Z88.8 Allergy status to other drugs, medicaments and biological substances